=== PATIENT | female | born 1980 | race Caucasian/White ===

== ENCOUNTER 2016-06-03 19:19 | Emergency (ER) | payer OTHER ==
[~2016-06-03] VITALS: Ht 165.1 cm; Wt 88.5 kg
[2016-06-03 19:25] VITALS: BP 122/97
--- NOTE | 2016-06-03 19:56 | PHYS DOC ---
Past Medical History Past Medical History: Depression Past Surgical History: , Tubal ligation Additional Past Surgical Histo: DENTAL, TUBES BX EARS, STAPH IN CHIN AND L LEG Alcohol Use: None Drug Use: None Adult General Chief Complaint Chief Complaint: Congestion HPI HPI Patient is a 35 year old female presents emergency Department today with complaint of cough congestion, body aches and subjective fevers and chills that began 5 days ago. Patient denies any known exposure to influenza. She denies antibiotic use, hospitalization or foreign travel within the past 90 days. She denies any history of heart or lung disease. She reports she is a nonsmoker. Review of Systems Review of Systems Constitutional: Denies fever or chills [] Eyes: Denies change in visual acuity, redness, or eye pain [] HENT: Denies nasal congestion or sore throat [] Respiratory: Denies cough or shortness of breath [] Cardiovascular: No additional information not addressed in HPI [] GI: Denies abdominal pain, nausea, vomiting, bloody stools or diarrhea [] : Denies dysuria or hematuria [] Musculoskeletal: Denies back pain or joint pain [] Integument: Denies rash or skin lesions [] Neurologic: Denies headache, focal weakness or sensory changes [] Endocrine: Denies polyuria or polydipsia [] Allergies Allergies Allergies Coded Allergies Type Severity Reaction Last Updated Verified Penicillins Allergy Intermediate 06/03/16 No coconut Allergy Intermediate 06/03/16 No linezolid Allergy Intermediate 06/03/16 No vancomycin Allergy Intermediate 06/03/16 No Physical Exam Physical Exam Constitutional: Well developed, well nourished, no acute distress, non-toxic appearance. [] HENT: Normocephalic, atraumatic, bilateral external ears normal, oropharynx moist, no oral exudates, clear rhinorrhea with inflamed nasal mucosa. Eyes: PERRLA, EOMI, conjunctiva normal, no discharge. [] Neck: Normal range of motion, no tenderness, supple, no stridor. There is no meningismus. There is bilateral anterior posterior cervical lymphadenopathy. Cardiovascular:Heart rate regular rhythm, no murmur [] Lungs & Thorax: There is no respiratory distress respiratory fatigue. Lungs are clear to auscultation bilaterally. Abdomen: Bowel sounds normal, soft, no tenderness, no masses, no pulsatile masses. [] Skin: Warm, dry, no erythema, no rash. [] Back: No tenderness, no CVA tenderness. [] Extremities: No tenderness, no cyanosis, no clubbing, ROM intact, no edema. [] Neurologic: Alert and oriented X 3, normal motor function, normal sensory function, no focal deficits noted. [] Psychologic: Affect normal, judgement normal, mood normal. [] Current Patient Data Vital Signs Vital Signs Date Time Temp Pulse Resp B/P Pulse Ox O2 Delivery O2 Flow Rate FiO2 06/03/16 19:25 97.8 96 18 122/97 96 Room Air 97.8 Lab Values Laboratory Tests Test 06/03/16 19:50 Influenza Type A Antigen Negative (NEGATIVE) Influenza Type B Antigen Negative (NEGATIVE) EKG EKG [] Radiology/Procedures Radiology/Procedures PA and lateral chest x-ray are performed with adequate technique. There is no evidence of consolidation/infiltrate or the acute thoracic process. Course & Med Decision Making Course & Med Decision Making Pertinent Labs and Imaging studies reviewed. (See chart for details) [] Dragon Disclaimer Dragon Disclaimer This electronic medical record was generated, in whole or in part, using a voice recognition dictation system. Departure Departure Impression: Primary Impression: Upper respiratory infection Disposition: HOME, SELF-CARE Condition: GOOD Referrals: RADHA GUZMAN MD (PCP) Patient Instructions: Upper Respiratory Infection, Adult, [id number] Additional Instructions: 1. Influenza test today is negative. Chest x-ray is normal. 2. You have a cold. 3. Review the discharge instructions provided for self-care and reasons to return the emergency department. Upper respiratory infections or caused by virus and do not require antibiotics for treatment. 4. Follow-up with your primary care doctor within 5-7 days if there are any questions or concerns. MEME SOOD Jun 03, 2016 19:56
[2016-06-03 20:15] LABS: OBC FLU VALID
--- NOTE | 2016-06-04 08:41 | RAD ---
EXAM: Chest 2 views. HISTORY: Dyspnea, cough, fever. COMPARISON: None. FINDINGS: Frontal and lateral views of the chest are obtained. There are no confluent infiltrates. There is no pneumothorax or pleural effusion. The heart is not enlarged. IMPRESSION: 1. No confluent infiltrates.
== END 2016-06-03 20:43 | disposition home or self-care (01) ==
LOC: ER 19:19
DX: J06.9 Acute upper respiratory infection, unspecified (principal); R59.1 Generalized enlarged lymph nodes; F32.9 Major depressive disorder, single episode, unspecified; Z88.1 Allergy status to other antibiotic agents; Z88.0 Allergy status to penicillin; Z88.8 Allergy status to other drugs, medicaments and biological substances; Z91.018 Allergy to other foods
CPT/HCPCS: 71020; 87804; 99285-25

== ENCOUNTER 2016-06-20 20:59 | Emergency (ER) | payer OTHER ==
[2016-06-20 21:02] VITALS: BP 122/80
[2016-06-20] MEDS ORDERED: PROMETH/CODEINE 6.25/10MG 5 ML SYRUP. PO ONE (23:15)
[2016-06-20] MEDS ORDERED: PROM25TA10 PO (23:28)
[2016-06-20] MEDS ORDERED: BENZ100C PO (23:28)
[2016-06-20] MEDS ORDERED: PROAIR RESPICL90 MCG IH (23:28)
--- NOTE | 2016-06-20 23:28 | PHYS DOC ---
Past Medical History Past Medical History: Depression Past Surgical History: , Tubal ligation Additional Past Surgical Histo: DENTAL, TUBES BX EARS, STAPH IN CHIN AND L LEG Alcohol Use: None Drug Use: None Adult General Chief Complaint Chief Complaint: COUGH HPI HPI Patient is a 36 year old female with history of depression who presents today with a productive cough for 4 days. Patient's also complaining of nasal congestion. She is also stating she has posttussis emesis. Patient denies any chance she is . Denies any fever. Denies any history of smoking. She states she was in the ED 2 weeks ago for the same complaint. Review of Systems Review of Systems Constitutional: See history of present illness Eyes: Denies change in visual acuity, redness, or eye pain [] HENT: Nasal congestion Respiratory: Productive cough Cardiovascular: No additional information not addressed in HPI [] GI: Denies abdominal pain, nausea, vomiting, bloody stools or diarrhea [] : Denies dysuria or hematuria [] Musculoskeletal: Denies back pain or joint pain [] Integument: Denies rash or skin lesions [] Neurologic: Denies headache, focal weakness or sensory changes [] Endocrine: Denies polyuria or polydipsia [] Current Medications Current Medications Current Medications Medications (Trade) Dose Ordered Sig/Geraldo Start Time Stop Time Status Last Admin Dose Admin Promethazine HCl/ Codeine (Phenergan With Codeine) 5 ml 1X ONCE 06/20/16 23:15 06/20/16 23:16 DC 06/20/16 23:22 5 ML Allergies Allergies Allergies Coded Allergies Type Severity Reaction Last Updated Verified Penicillins Allergy Intermediate 06/03/16 No coconut Allergy Intermediate 06/03/16 No linezolid Allergy Intermediate 06/03/16 No vancomycin Allergy Intermediate 06/03/16 No Physical Exam Physical Exam Constitutional: Well developed, well nourished, no acute distress, non-toxic appearance. [] HENT: Normocephalic, atraumatic, bilateral external ears normal, oropharynx moist, no oral exudates, nose normal. [] Eyes: PERRLA, EOMI, conjunctiva normal, no discharge. [] Neck: Normal range of motion, no tenderness, supple, no stridor. [] Cardiovascular:Heart rate regular rhythm, no murmur [] Lungs & Thorax: Bilateral breath sounds clear to auscultation [] Abdomen: Bowel sounds normal, soft, no tenderness, no masses, no pulsatile masses. [] Skin: Warm, dry, no erythema, no rash. [] Back: No tenderness, no CVA tenderness. [] Extremities: No tenderness, no cyanosis, no clubbing, ROM intact, no edema. [] Neurologic: Alert and oriented X 3, normal motor function, normal sensory function, no focal deficits noted. [] Psychologic: Affect normal, judgement normal, mood normal. [] Current Patient Data Vital Signs Vital Signs Date Time Temp Pulse Resp B/P Pulse Ox O2 Delivery O2 Flow Rate FiO2 06/20/16 21:02 98.1 120 22 98 Room Air 98.1 EKG EKG [] Radiology/Procedures Radiology/Procedures [] Course & Med Decision Making Course & Med Decision Making Pertinent Labs and Imaging studies reviewed. (See chart for details) Patient is in the ED with symptoms consistent of upper respiratory infection. Chest x-ray interpreted by Dr. Richard is negative for any acute findings. Patient was discharged with Tessalon Perles and promethazine. She was instructed to follow-up with the PCP in 1-2 weeks. Dragon Disclaimer Dragon Disclaimer This electronic medical record was generated, in whole or in part, using a voice recognition dictation system. Departure Departure Impression: Primary Impression: Upper respiratory infection Additional Impression: Cough Disposition: 01 HOME, SELF-CARE Condition: STABLE Referrals: RADHA GUZMAN MD (PCP) Follow-up with your doctor in 1-2 weeks Patient Instructions: Upper Respiratory Infection, Adult Additional Instructions: You were seen for symptoms consistent with an upper respiratory infection. Please take Tylenol every 4 hours and Motrin every 6 hours. Push fluids maintain good hand hygiene. Follow-up with your doctor in one week. Scripts Benzonatate (Tessalon Perle)100 Mg Capsule1 Cap PO TID #30 CAP Prov:MUTUNGA,TEDDY SUPERINTENDENT PRESSURE 06/20/16 Albuterol Sulfate (Proair Respiclick)90 Mcg Aer.pow.ba1 Puff IH PRN Q6HRS PRN SHORTNESS OF BREATH #1 INHALER Prov:MUTUNGA,TEDDY SUPERINTENDENT PRESSURE 06/20/16 Promethazine Hcl 25 Mg Tablet1 Tab PO PRN Q6HRS #20 TAB Prov:MUTUNGA,TEDDY SUPERINTENDENT PRESSURE 06/20/16 Problem Qualifiers Primary Impression: Upper respiratory infection URI type: unspecified URI Qualified Code: J06.9 - Acute upper respiratory infection, unspecified TEDDY ARCHIBALD APRN Jun 20, 2016 23:28
--- NOTE | 2016-06-21 08:20 | RAD ---
Indication flulike symptoms. PA and lateral views of the chest were obtained. Comparison is made to a previous examination 06/03/2016. The heart and pulmonary vessels appear normal. The lungs are clear. There has not been a significant change compared to the previous exam. IMPRESSION: No acute or focal process. No significant change
== END 2016-06-20 23:32 | disposition home or self-care (01) ==
LOC: ER 20:59
DX: J06.9 Acute upper respiratory infection, unspecified (principal); F32.9 Major depressive disorder, single episode, unspecified; Z88.0 Allergy status to penicillin; Z88.1 Allergy status to other antibiotic agents; Z88.8 Allergy status to other drugs, medicaments and biological substances; Z91.018 Allergy to other foods
CPT/HCPCS: 71020; 99284-25

== ENCOUNTER 2017-03-09 14:08 | Emergency (ER) | payer OTHER ==
[~2017-03-09] VITALS: Ht 165.1 cm; Wt 83.9 kg
[~2017-03-09 14:08] MED LIST: BENZ100C PO; PROAIR RESPICL90 MCG IH; PROM25TA10 PO
[2017-03-09] MEDS ORDERED: ALBUTEROL SULFATE 2.5 MG/3 ML NEBU. NEB ONE (14:45)
--- NOTE | 2017-03-09 15:56 | RAD ---
Chest, 2 views, 03/09/2017: History: Shortness of breath, nonproductive cough Comparison is made to a study from 06/20/2016. The heart size and pulmonary vascularity are normal. No pulmonary infiltrates are seen. There is no evidence of pleural fluid. IMPRESSION: No acute cardiopulmonary abnormality is detected.
[2017-03-09] MEDS ORDERED: PROAIR HFA8.5 GM INH (16:16)
[2017-03-09 16:20] VITALS: BP 121/73
--- NOTE | 2017-03-10 15:49 | PHYS DOC ---
Past Medical History Past Medical History: Depression Past Surgical History: , Tubal ligation Additional Past Surgical Histo: DENTAL, TUBES BX EARS, STAPH IN CHIN AND L LEG Alcohol Use: None Drug Use: None Adult General Chief Complaint Chief Complaint: COUGH HPI HPI Patient is a 36 year old female who presents with a cough x 1 day. The patient' s child was recently treated for viral pneumonia. The patient developed a cough a few hours prior to arrival and was worried that she might have pneumonia as well. She has not taken that medication for this condition. Review of Systems Review of Systems Constitutional: Denies fever or chills [] Eyes: Denies change in visual acuity, redness, or eye pain [] HENT: Denies nasal congestion or sore throat [] Respiratory: See history of present illness Cardiovascular: No additional information not addressed in HPI [] GI: Denies abdominal pain, nausea, vomiting, bloody stools or diarrhea [] : Denies dysuria or hematuria [] Musculoskeletal: Denies back pain or joint pain [] Integument: Denies rash or skin lesions [] Neurologic: Denies headache, focal weakness or sensory changes [] Endocrine: Denies polyuria or polydipsia [] All other systems were reviewed and found to be within normal limits, except as documented in this note. Current Medications Current Medications Current Medications Medications (Trade) Dose Ordered Sig/Geraldo Start Time Stop Time Status Last Admin Dose Admin Albuterol Sulfate (Ventolin Neb Soln) 2.5 mg 1X ONCE 03/09/17 14:45 03/09/17 14:46 DC 03/09/17 16:00 2.5 MG Allergies Allergies Allergies Coded Allergies Type Severity Reaction Last Updated Verified Penicillins Allergy Intermediate 06/03/16 No coconut Allergy Intermediate 06/03/16 No linezolid Allergy Intermediate 06/03/16 No vancomycin Allergy Intermediate 06/03/16 No Physical Exam Physical Exam Constitutional: Well developed, well nourished, no acute distress, non-toxic appearance. [] HENT: Normocephalic, atraumatic, bilateral external ears normal, oropharynx moist, no oral exudates, nose normal. [] Eyes: PERRLA, EOMI, conjunctiva normal, no discharge. [] Neck: Normal range of motion, no tenderness, supple, no stridor. [] Cardiovascular:Heart rate regular rhythm, no murmur [] Lungs & Thorax: Bilateral breath sounds clear to auscultation with slightly diminished breath sounds to right lower lobe, no wheezings or retractions noted , there is no stridor [] Abdomen: Bowel sounds normal, soft, no tenderness, no masses, no pulsatile masses. [] Skin: Warm, dry, no erythema, no rash. [] Back: No tenderness, no CVA tenderness. [] Extremities: No tenderness, no cyanosis, no clubbing, ROM intact, no edema. [] Neurologic: Alert and oriented X 3, normal motor function, normal sensory function, no focal deficits noted. [] Psychologic: Affect normal, judgement normal, mood normal. [] Current Patient Data Vital Signs Vital Signs Date Time Temp Pulse Resp B/P (MAP) Pulse Ox O2 Delivery O2 Flow Rate FiO2 03/09/17 16:20 90 18 121/73 (89) 99 Room Air 03/09/17 14:25 97.9 97.9 EKG EKG [] Radiology/Procedures Radiology/Procedures [] PATIENT: AVERY LEE ACCOUNT: [id number] : 1980 LOCATION: ER AGE: 36 SEX: F EXAM STATUS: REG ER ORD. PHYSICIAN: MANDO BARRAGAN APRN REASON: SOA PROCEDURE: CHEST PA & LATERAL Chest, 2 views, 03/09/2017: History: Shortness of breath, nonproductive cough Comparison is made to a study from 06/20/2016. The heart size and pulmonary vascularity are normal. No pulmonary infiltrates are seen. There is no evidence of pleural fluid. IMPRESSION: No acute cardiopulmonary abnormality is detected. DICTATED and SIGNED BY: THEOODRA GIL MD DATE: 03/09/17 1552 CC: MANDO BARRAGAN APRN; RADHA GUZMAN MD; NON,STAFF ~ Impressions: Following administration of the a breathing treatment in the emergency room with 2.5 mg of albuterol the patient states that her cough has resolved. She states that she is feeling much better and feels like she is breathing easy. Course & Med Decision Making Course & Med Decision Making Pertinent Labs and Imaging studies reviewed. (See chart for details) []1. Cough You have been prescribed a pro-air inhaler. Please use this as directed. Please return to the ED for any worsening of symptoms or follow-up your primary care provider in one week for reexamination. Maria Fernanda Disclaimer Dragon Disclaimer This electronic medical record was generated, in whole or in part, using a voice recognition dictation system. Departure Departure Impression: Primary Impression: Upper respiratory infection Additional Impression: Cough Disposition: 01 HOME, SELF-CARE Condition: STABLE Referrals: RADHA GUZMAN MD (PCP) Patient Instructions: Cough, Adult, [id number], Upper Respiratory Infection, Adult Scripts Albuterol Sulfate (PROAIR HFA INHALER) 8.5 Gm Hfa.aer.ad 1 PUFF INH PRN Q6HRS Y for SHORTNESS OF BREATH, #1 INHALER 0 Refills Prov: MANDO BARARGAN APRN 03/09/17 Problem Qualifiers MANDO BARRAGAN APRN Mar 10, 2017 15:49
== END 2017-03-09 16:20 | disposition home or self-care (01) ==
LOC: ER 14:08
DX: J06.9 Acute upper respiratory infection, unspecified (principal); Z88.0 Allergy status to penicillin; Z88.1 Allergy status to other antibiotic agents; Z91.018 Allergy to other foods
CPT/HCPCS: 71020; 94250; 94640; 99284; J7613

== ENCOUNTER → 2017-04-07 | Outpatient (CLI) | payer OTHER | END | disposition home or self-care (01) | LOC: KCIC 08:17 | DX: R05 Cough (principal); R07.9 Chest pain, unspecified | CPT/HCPCS: 71046 ==

== ENCOUNTER → 2017-08-05 | Outpatient (CLI) | payer OTHER ==
[2017-08-05] MEDS: IOHEXOL 240 MG/ML 50ML VIAL. PO (15:51)
[2017-08-05] MEDS: IOHEXOL 300 MG/ML 100ML VIAL. IV (15:51)
== END | disposition home or self-care (01) ==
LOC: KCIC CT 14:24
DX: N30.90 Cystitis, unspecified without hematuria (principal)
CPT/HCPCS: 74177; Q9966; Q9967